=== PATIENT | female | born 1995 | race Caucasian/White ===

== ENCOUNTER 2019-12-09 10:34 | Inpatient (IN) | payer OTHER ==
[~2019-12-09] VITALS: Ht 170.2 cm; Wt 80.3 kg
[~2019-12-09 10:34] MED LIST: IBUP-2070 PO
[2019-12-09] MEDS ORDERED: OXYTOCIN 30 UNITS/LACT RINGERS 500 ML IV ONE ×2 (11:26→22:39)
[2019-12-09] MEDS ORDERED: RINGERS SOLUTION,LACTATED 1,000 ML IV PRN (11:26)
[2019-12-09] MEDS ORDERED: OXYTOCIN 30 UNITS/LACT RINGERS 500 ML IV PRN (11:26)
[2019-12-09] MEDS ORDERED: METHYLERGONOVINE MALEATE 0.2 MG/ML VIAL IM PRN (11:30)
[2019-12-09] MEDS ORDERED: METOCLOPRAMIDE HCL 5 MG/ML 2 ML VIAL IVP PRN (11:30)
[2019-12-09] MEDS ORDERED: FentaNYL CITRATE-PF 100 MCG/2 ML VIAL IVP PRN (11:30)
[2019-12-09] MEDS ORDERED: CITRIC ACID/SODIUM CITRATE 30 ML SOLUTION UDCUP PO PRN (11:30)
[2019-12-09] MEDS ORDERED: LIDOCAINE/PF 1% 30 ML VIAL INJ PRN ×2 (11:30→22:45)
[2019-12-09 11:33] VITALS: BP 123/77
[2019-12-09 12:04] LABS: BASOPHILS % (AUTO) 0.5 % (0.0-2.0); EOSINOPHILS % (AUTO) 1.1 % (1.0-6.0); HEMATOCRIT 34.8 % (36-46); HEMOGLOBIN 11.5 g/dL (12.0-16.0); LYMPHOCYTES # (AUTO) 1.9 K/uL (1.0-4.8); LYMPHOCYTES % (AUTO) 28.6 % (22.0-44.0); MEAN CORPUSCULAR HEMOGLOBIN 26.7 pg (26.0-34.0); MEAN CORPUSCULAR HGB CONC 32.9 G/dL (31.0-37.0); MEAN CORPUSCULAR VOLUME 81 fL (80-100); MONOCYTES # (AUTO) 0.7 K/uL (0.1-1.0); MONOCYTES % (AUTO) 10.1 % (2.0-9.0); NEUTROPHILS # (AUTO) 3.9 K/uL (1.8-7.7); NEUTROPHILS % (AUTO) 59.7 % (40.0-70.0); PLATELET COUNT (AUTO)-OB 150 K/uL (150-450); RED BLOOD CELL COUNT(AUTO) 4.29 MIL/uL (4.00-5.20); RED CELL DISTRIBUTION WIDTH 15.5 % (11.5-14.5)
[2019-12-09] MEDS: RINGERS SOLUTION,LACTATED 1,000 ML IV SCH ×3 (12:06→18:49)
[2019-12-09] MEDS ORDERED: PREN-217 PO (16:12)
[2019-12-09] MEDS ORDERED: ROPIVACAINE HCL/PF 0.2% 100 ML ED ONE (16:53)
[2019-12-09] MEDS ORDERED: ROPIVACAINE HCL/PF 0.2% 100 ML ED PRN (19:48)
[2019-12-09] MEDS ORDERED: ONDANSETRON HCL 4 MG/2 ML VIAL IVP PRN (20:00)
[2019-12-09] MEDS ORDERED: NALBUPHINE HCL 10 MG/ML VIAL IVP PRN (20:00)
[2019-12-09] MEDS ORDERED: OXYGEN THERAPY IH SCH (20:00)
[2019-12-09] MEDS ORDERED: DiphenhydrAMINE HCL 50 MG/ML VIAL IVP PRN (20:00)
[2019-12-09] MEDS ORDERED: GLYCERIN/WITCH HAZEL LEAF 40 PADS JAR TP PRN (22:45)
[2019-12-09] MEDS ORDERED: BENZOCAINE 20%/MENTHOL 56 GM SPRAY CANISTER TP PRN (22:45)
[2019-12-09] MEDS ORDERED: LANOLIN 7 GM OINTMENT TP PRN (22:45)
[2019-12-09] MEDS ORDERED: OxyCODONE HCL/ACETAMINOPHEN 5-325 MG TABLET PO PRN ×2 (22:45)
[2019-12-09] MEDS: IBUPROFEN 800 MG TABLET PO PRN (23:48)
[2019-12-10] MEDS: IBUPROFEN 800 MG TABLET PO PRN ×2 (08:07→21:24)
[2019-12-10 08:12] LABS: BASOPHILS % (AUTO) 0.4 % (0.0-2.0); EOSINOPHILS % (AUTO) 0.5 % (1.0-6.0); HEMATOCRIT 28.4 % (36-46); HEMOGLOBIN 9.6 g/dL (12.0-16.0); LYMPHOCYTES # (AUTO) 1.8 K/uL (1.0-4.8); LYMPHOCYTES % (AUTO) 18.7 % (22.0-44.0); MEAN CORPUSCULAR HGB CONC 33.7 G/dL (31.0-37.0); MEAN CORPUSCULAR VOLUME 80 fL (80-100); MONOCYTES # (AUTO) 0.8 K/uL (0.1-1.0); MONOCYTES % (AUTO) 8.2 % (2.0-9.0); NEUTROPHILS # (AUTO) 7.1 K/uL (1.8-7.7); NEUTROPHILS % (AUTO) 72.2 % (40.0-70.0); PLATELET COUNT (AUTO)-OB 130 K/uL (150-450); RED BLOOD CELL COUNT(AUTO) 3.54 MIL/uL (4.00-5.20); RED CELL DISTRIBUTION WIDTH 15.4 % (11.5-14.5)
[2019-12-10] MEDS: MAGNESIUM HYDROXIDE SUSPENSION 30 ML UDCUP PO PRN (21:24)
[2019-12-11] MEDS: MAGNESIUM HYDROXIDE SUSPENSION 30 ML UDCUP PO PRN (09:04)
[2019-12-11] MEDS ORDERED: IBUP-2071 PO (09:46)
[2019-12-11] MEDS ORDERED: DOCU-275 PO (09:47)
[2019-12-11] MEDS ORDERED: FERR-89 PO (09:49)
== END 2019-12-11 11:45 | disposition home or self-care (01) | DRG 807 ==
LOC: OBSVTOIN 10:34 → 4S 10:34
PROVIDERS: ADMIT Obstetrics & Gynecology; ATTEND Obstetrics & Gynecology
PROC: 10E0XZZ Delivery of Products of Conception, External Approach (ICD-10-PCS; principal; 2019-12-09)
PROC: 0KQM0ZZ Repair Perineum Muscle, Open Approach (ICD-10-PCS; 2019-12-09)
PROC: 3E0R3BZ Introduction of Anesthetic Agent into Spinal Canal, Percutaneous Approach (ICD-10-PCS; 2019-12-09)
PROC: 00HU33Z Insertion of Infusion Device into Spinal Canal, Percutaneous Approach (ICD-10-PCS; 2019-12-09)
DX: O70.1 Second degree perineal laceration during delivery (principal); Z37.0 Single live birth; Z3A.40 40 weeks gestation of pregnancy
CPT/HCPCS: 86850; 86900; 86901; J2590; J2795; J7120